=== PATIENT | male | born 2000 | race Caucasian/White ===

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

== ENCOUNTER 2022-01-04 20:15 | Emergency (ER) | payer BC, OTHER ==
[~2022-01-04] VITALS: Ht 185.4 cm; Wt 75.0 kg
[2022-01-04] MEDS ORDERED: ISOVUE-370 76% 100ML VIAL As Ordered ONE (20:25)
[2022-01-04] MEDS ORDERED: ONDANSETRON 4MG/2ML VIAL IV ONE ×2 (20:25→21:45)
[2022-01-04] MEDS: fentaNYL 100 MCG/2 ML INJECTION IV PRN ×3 (20:37→21:34)
[2022-01-04 21:23] LABS: BASO # 0.1 10^3/uL (0.0-0.2); BASO % 0.2 % (0.0-1.0); EOS # 0.1 10^3/uL (0.0-0.5); EOS % 0.3 % (0.0-3.0); HEMATOCRIT 40.9 % (42.0-52.0); LYMPH # 1.6 10^3/uL (1.5-5.0); LYMPH % 7.6 % (24.0-44.0); MEAN CORPUSCULAR HEMOGLOBIN 30.9 pg (27.0-33.0); MEAN CORPUSCULAR HGB CONC 34.2 g/dl (32.0-36.5); MEAN CORPUSCULAR VOLUME 90.3 fl (80.0-96.0); MONO % 7.6 % (2.0-8.0); NEUTROPHILS # 16.9 10^3/uL (1.5-8.5); NEUTROPHILS % 82.6 % (36.0-66.0); PLATELET COUNT, AUTOMATED 217 10^3/uL (150-450); RED BLOOD COUNT 4.53 10^6/uL (4.30-6.10); WHITE BLOOD COUNT 20.5 10^3/uL (4.0-10.0)
[2022-01-04 21:27] LABS: MONO # 1.6 10^3/uL (0.0-0.8)
[2022-01-04 21:32] LABS: INR 1.12; PROTHROMBIN TIME 14.8 SECONDS (12.7-14.5)
[2022-01-04 21:33] LABS: PARTIAL THROMBOPLASTIN TIME 24.7 SECONDS (25.9-37.0)
[2022-01-04] MEDS ORDERED: NS 1,000 ML IV ONE (21:45)
[2022-01-04] MEDS ORDERED: fentaNYL 100 MCG/2 ML INJECTION IV ONE (21:45)
[2022-01-04 21:54] LABS: ALBUMIN 3.8 GM/DL (3.2-5.2); ALT/SGPT 70 U/L (12-78); AMYLASE 55 U/L (25-115); BILIRUBIN,DIRECT 0.3 MG/DL (0.0-0.2); BILIRUBIN,TOTAL 0.4 MG/DL (0.2-1.0); BLOOD UREA NITROGEN 10 MG/DL (7-18); CALCIUM LEVEL 8.5 MG/DL (8.5-10.1); CARBON DIOXIDE LEVEL 22 MEQ/L (21-32); CHLORIDE LEVEL 106 MEQ/L (98-107); CREATININE FOR GFR 1.01 MG/DL (0.70-1.30); ETHYL ALCOHOL (ETHANOL) 0.035 % (0.000-0.010); GLUCOSE, FASTING 118 MG/DL (70-100); LIPASE 89 U/L (73-393); POTASSIUM SERUM 3.8 MEQ/L (3.5-5.1); SODIUM LEVEL 140 MEQ/L (136-145); TOTAL PROTEIN 6.3 GM/DL (6.4-8.2)
[2022-01-04 21:56] LABS: RSV AMPLIFICATION NEGATIVE (NEGATIVE)
[2022-01-04 22:01] VITALS: BP 119/73
[2022-01-04 22:10] LABS: CK-MB VALUE MASS 14.3 NG/ML (<3.6); MB/CK RELATIVE INDEX 0.98 (< OR =4)
== END 2022-01-04 22:06 | disposition short-term general hospital (02) ==
LOC: M ED 20:15 → EDBD 20:15 → M ED 22:06
DX: S25.10 Unspecified injury of innominate or subclavian artery (principal); S22.42XA Multiple fractures of ribs, left side, initial encounter for closed fracture; S12.600A Unspecified displaced fracture of seventh cervical vertebra, initial encounter for closed fracture; S22.019A Unspecified fracture of first thoracic vertebra, initial encounter for closed fracture; S22.029A Unspecified fracture of second thoracic vertebra, initial encounter for closed fracture; S22.039A Unspecified fracture of third thoracic vertebra, initial encounter for closed fracture; S22.049A Unspecified fracture of fourth thoracic vertebra, initial encounter for closed fracture; S22.059A Unspecified fracture of T5-T6 vertebra, initial encounter for closed fracture; S22.069A Unspecified fracture of T7-T8 vertebra, initial encounter for closed fracture; V86.55XA Driver of 3- or 4- wheeled all-terrain vehicle (ATV) injured in nontraffic accident, initial encounter; Y92.89 Other specified places as the place of occurrence of the external cause
CPT/HCPCS: 70450; 71260; 72125; 72128; 72131; 74177; 80048; 80076; 82077; 82150; 82550; 82553; 83690; 84484; 85025; 85610; 85730; 86850; 86900; 86901; 87631; 93041; 94760; 96374; 96375; 96376; 99285; J2405; J3010; Q9967